=== PATIENT | female | born 1945 | race Caucasian/White ===

== ENCOUNTER 2016-11-29 10:02 | Outpatient (CLI) | payer MEDICARE ==
[~2016-11-29] VITALS: Ht 157.5 cm; Wt 56.8 kg
[~2016-11-29 10:02] MED LIST: FEXOFENADINE HC60 MG PO; HYDROCHLOROTHIA25 MG PO; OMEPRAZOLE40 MG PO; ZOCOR40 MG PO
[2016-11-29 10:34] VITALS: BP 114/63; Ht 157.5 cm; Wt 56.8 kg
== END 2016-11-29 11:05 | disposition home or self-care (01) ==
LOC: D.OPS 10:02
DX: M81.0 Age-related osteoporosis without current pathological fracture (principal)